=== PATIENT | female | born 1990 | race Caucasian/White ===

== ENCOUNTER → 2017-01-07 | Outpatient (CLI) | payer MEDICAID | LOC: FIMAGING 13:12 | PROVIDERS: ATTEND Obstetrics & Gynecology | DX: Z34.81 Encounter for supervision of other normal pregnancy, first trimester (principal); Z3A.13 13 weeks gestation of pregnancy; Z82.79 Family history of other congenital malformations, deformations and chromosomal abnormalities ==

== ENCOUNTER → 2017-02-16 | Outpatient (CLI) | payer MEDICAID | LOC: FIMAGING 09:35 | PROVIDERS: ATTEND Obstetrics & Gynecology | DX: O26.872 Cervical shortening, second trimester (principal); Z3A.19 19 weeks gestation of pregnancy; Z82.49 Family history of ischemic heart disease and other diseases of the circulatory system ==

== ENCOUNTER → 2017-02-25 | Outpatient (CLI) | payer MEDICAID | LOC: FIMAGING 10:23 | PROVIDERS: ATTEND Obstetrics & Gynecology | DX: O34.32 Maternal care for cervical incompetence, second trimester (principal); Z3A.20 20 weeks gestation of pregnancy ==

== ENCOUNTER → 2017-03-02 | Outpatient (CLI) | payer MEDICAID | LOC: FIMAGING 10:14 | PROVIDERS: ATTEND Obstetrics & Gynecology | DX: O26.872 Cervical shortening, second trimester (principal); Z3A.21 21 weeks gestation of pregnancy ==

== ENCOUNTER → 2017-03-09 | Outpatient (CLI) | payer MEDICAID | LOC: FIMAGING 10:42 | PROVIDERS: ATTEND Obstetrics & Gynecology | DX: O34.42 Maternal care for other abnormalities of cervix, second trimester (principal); Z3A.22 22 weeks gestation of pregnancy ==